=== PATIENT | female | born 1965 | race Caucasian/White ===

== ENCOUNTER 2025-06-12 12:54 | Outpatient (REF) | payer OTHER, SELFPAY ==
--- NOTE | 2025-06-12 | EMG_ITS ---
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 Right median and ulnar mixed sensory, 2nd and 5th digit ortho sensory, and radial sensory studies were performed. Needle examination was performed. Findings: Right median mixed distal latencies was mildly prolonged with intact conduction velocity. Otherwise no significant abnormality noted. Impression: Mild right median neuropathy across carpal tunnel [place] [id number] 1 extremity MTDD
== END 2025-06-12 12:55 | disposition home or self-care (01) ==
LOC: HO.NEURO 12:54
PROVIDERS: PCP Nurse Practitioner Family; Visit Provider Podiatrist
DX: G62.2 Polyneuropathy due to other toxic agents (principal); M25.571 Pain in right ankle and joints of right foot
CPT/HCPCS: 95885; 95910

== ENCOUNTER → 2025-06-12 13:05 | Outpatient (BNV) | payer OTHER, SELFPAY | PROVIDERS: PCP Nurse Practitioner Family; Visit Provider Psychiatry & Neurology Neurology | DX: G56.01 Carpal tunnel syndrome, right upper limb (principal) | CPT/HCPCS: 95886; 95910 ==